=== PATIENT | male | born 1955 | race Caucasian/White ===

== ENCOUNTER → 2016-09-20 | Outpatient (CLI) | payer MEDICAID | LOC: FIMAGING 09:51 | PROVIDERS: ATTEND Physician Assistant Medical | DX: M48.02 Spinal stenosis, cervical region (principal); M50.321 Other cervical disc degeneration at C4-C5 level; J32.9 Chronic sinusitis, unspecified ==

== ENCOUNTER → 2016-12-17 | Outpatient (CLI) | payer MEDICAID ==
[~2016-12-17] MED LIST: IOPAMIDOL (ISOVUE-300) 100 ML BTL ONE
== END ==
LOC: CIMAGING 14:20
PROVIDERS: ATTEND Internal Medicine
DX: R10.32 Left lower quadrant pain (principal)
CPT/HCPCS: 74177-PO; Q9967

== ENCOUNTER 2017-01-20 06:07 | Day surgery (SDC) | payer MEDICAID ==
[2017-01-20] MEDS ORDERED: LR 1,000 ML IV ONE (06:15)
[2017-01-20] MEDS ORDERED: LIDOCAINE 1% 2 ML INJ ID PRN (06:15)
[2017-01-20 06:42] VITALS: TEMP 97.5
--- NOTE | 2017-01-20 07:08 | PDANEPAE ---
ANE History of Present Illness colonoscopy ANE Past Medical History - Cardiovascular History Hx Hypertension: No Hx Arrhythmias: No Hx Chest Pain: No Hx Coronary Artery / Peripheral Vascular Disease: No Hx CHF / Valvular Disease: No Hx Palpitations: No - Pulmonary History Hx COPD: No Hx Asthma/Reactive Airway Disease: No Hx Recent Upper Respiratory Infection: No Hx Oxygen in Use at Home: No Hx Sleep Apnea: No Sleep Apnea Screening Result - Last Documented: Positive - Neurologic History Hx Cerebrovascular Accident: No Hx Seizures: No Hx Dementia: No - Endocrine History Hx Diabetes: No Hypothyroid: No Hyperthyroid: No - Renal History Hx Renal Disorders: No - Liver History Hx Hepatic Disorders: No - Neurological & Psychiatric Hx Hx Neurological and Psychiatric Disorders: No - Cancer History Hx Cancer: No - Congenital Disorder History Hx Congenital Disorders: No - GI History Hx Gastrointestinal Disorders: Yes Gastrointestinal History Comment: LOWER LEFT SIDE OF COLON - Other Health History Other Health History: NONE - Chronic Pain History Chronic Pain: Yes (RIGHT ARM/SHOULDER) - Surgical History Prior Surgeries: COLONOSCOPY X2 ELBOW SURGERY ANE Review of Systems - Exercise capacity METS (RN): 4 METS ANE Patient History - Allergies Allergies/Adverse Reactions: No Known Allergies Allergy (Unverified 01/16/17 17:25) - NPO status NPO Since - Liquids (Date): 01/19/17 NPO Since - Liquids (Time): 22:30 NPO Since - Solids (Date): 01/19/17 NPO Since - Solids (Time): 09:00 - Anes Hx Anes Hx: no prior problems - Smoking Hx Smoking Status: Never smoked Marijuana use: No - Alcohol Use Alcohol Use: Occasionally - Family Anes Hx Family Anes Hx: none Family Hx Anesthesia Complications: NONE ANE Labs/Vital Signs - Vital Signs Blood Pressure: 109/66 Heart Rate: 55 Respiratory Rate: 16 O2 Sat (%): 95 Height: 185.42 cm Weight: 83.915 kg ANE Physical Exam - Airway Neck exam: FROM Mouth exam: normal dental/mouth exam - Pulmonary Pulmonary: no respiratory distress - Cardiovascular Cardiovascular: regular rate and rhythym - ASA Status ASA Status: I
[2017-01-20] MEDS ORDERED: PROPOFOL 200 MG/20 ML VIAL ONE ×2 (07:32)
--- NOTE | 2017-01-20 07:33 | PDGENHP ---
History & Physical Chief Complaint: LLQ pain Relevant Physical Exam: GEN: NAD. Cardiac: RRR. Lungs: CTA B. Abd: Soft, nt, nd
[2017-01-20] MEDS ORDERED: ONDANSETRON 4 MG/2 ML VIAL IVP PRN (07:49)
[2017-01-20] MEDS ORDERED: NALOXONE HCL 0.4 MG/ML INJ IVP PRN (07:49)
--- NOTE | 2017-01-20 07:49 | POSTANESTH ---
Post Anesthetic Evaluation Cardiovascular Status: Normal, Stable Respiratory Status: Normal, Stable Level of Consciousness/Mental Status: Can Participate in Eval Pain Control: Adequate, Prn Tx Ordered Nausea/Vomiting Control: Adequate, Prn Tx Ordered Complications Possibly Related to Anesthesia: None Noted
[2017-01-20] MEDS ORDERED: LIDOCAINE 2% 5 ML SDV ONE (07:50)
--- NOTE | 2017-01-20 08:01 | POSTOPPROG ---
Post Op Note Date of Operation: 01/20/17 Surgeon: Josep Lindsay Pre-op Diagnosis: LLQ pain Post-op Diagnosis: Same Procedure: Colonoscopy with snare and bx Findings: Colon polyps Inf/Abcess present in the surg proc area at time of surgery?: No
--- NOTE | 2017-01-20 08:21 | GPN ---
[f rep st] PROCEDURE NOTE PREPROCEDURE DIAGNOSIS: Left lower quadrant abdominal pain. POSTPROCEDURE DIAGNOSIS: Left lower quadrant abdominal pain. PROCEDURE: Colonoscopy with snare, colonoscopy with biopsies. MEDICATIONS: Monitored anesthesia care. BLOOD LOSS: Minimal. BIOPSIES: Yes. COMPLICATIONS: None. INDICATIONS: The patient is a 61-year-old gentleman with a history of left lower quadrant abdominal pain. He also has multiple colon polyps during his last colonoscopy and a 3 year followup was jessica mmended. It has been 2 years since his last colonoscopy. The risks and benefits of the procedure d iscussed the patient. Consent obtained. Risks include, but not limited to, bleeding, perforation, sedation. The patient is ASA class 2. PROCEDURE: The adult colonoscope was advanced to the terminal ileum, which appeared normal. The ce cum, appendiceal orifice are normal. There was a 4 mm polyp in the ascending colon, which removed w ith cold snare polypectomy technique and the pathology retrieved. The hepatic flexure, transverse c olon, splenic flexure, descending colon were normal. There were 3 small polyps removed from the sig moid colon with cold biopsy forceps and sent off to pathology. Retroflexed views in the rectum were normal. There was mild left-sided diverticulosis. IMPRESSION: 1. Colon polyp, status post removal. 2. Mild left-sided diverticulosis. 3. No findings to explain left lower quadrant abdominal pain. RECOMMENDATIONS: 1. Discharge home with escort. 2. Advance diet as tolerated. 3. Follow up final pathology results. The results will be available within 10 days. 4. Repeat colonoscopy in 3 years given multiple polyps in the past and recurrent polyps. 5. Follow up in clinic as previously scheduled. Thank you for allowing me to participate in care of your patient. Please do not hesitate to call mn th questions. /[id number]/MODL
[2017-01-20 08:49] VITALS: O2SAT 96
[2017-01-20 09:26] VITALS: BP 114/67; PULSE 46; RESP 16
== END 2017-01-20 09:14 | disposition home or self-care (01) ==
LOC: FSGY 06:07
PROVIDERS: ATTEND Internal Medicine Gastroenterology
DX: R10.32 Left lower quadrant pain (principal); D12.2 Benign neoplasm of ascending colon; K63.5 Polyp of colon; M25.511 Pain in right shoulder; G89.29 Other chronic pain; Z87.891 Personal history of nicotine dependence; Z86.010 Personal history of colon polyps; Z82.49 Family history of ischemic heart disease and other diseases of the circulatory system; Z83.3 Family history of diabetes mellitus
CPT/HCPCS: J2704

== ENCOUNTER 2017-01-24 21:02 | Emergency (ER) | payer MEDICAID ==
[2017-01-24 21:07] VITALS: TEMP 97.9
[2017-01-24 21:56] LABS: COLOR COLORLESS; LEUKOCYTE ESTERASE,URINE NEGATIVE (NEGATIVE); NITRITE,URINE NEGATIVE (NEGATIVE)
--- NOTE | 2017-01-24 22:00 | EDPHY ---
H & P Stated Complaint: unable to urinate Time Seen by Provider: 01/24/17 21:18 HPI/ROS: Chief complaint: Unable to urinate History of present illness: This is a 61-year-old male who presents to the emergency department for inability to urinate. Patient reports symptoms began approximately 3 hours ago. He reports distention in the lower abdomen with pain. He is very uncomfortable. He denies any known precipitating factors. He denies any alleviating factors. He has never had problems with inability to urinate previously although he does report a history of occasional difficulty completely voiding. No report of fevers. - Medical/Surgical History Hx Asthma: No Hx Chronic Respiratory Disease: No Hx Diabetes: No Hx Cardiac Disease: No Hx Renal Disease: No Hx Cirrhosis: No Hx Alcoholism: No Hx HIV/AIDS: No Hx Splenectomy or Spleen Trauma: No - Social History Smoking Status: Never smoked - Physical Exam Exam: General Appearance: Alert, nontoxic Eyes: Pupils equal and round no injection. Respiratory: Chest is non tender, lungs are clear to auscultation. Cardiac: regular rate and rhythm Gastrointestinal: Abdomen is soft and non tender, no masses, bowel sounds normal. Musculoskeletal: Neck is supple and non tender. Extremities have full range of motion and are non tender. Skin: No rashes or lesions. Neurological: Alert and oriented. Constitutional: Initial Vital Signs Temperature (C) 36.6 C 01/24/17 21:05 Heart Rate 84 01/24/17 21:05 Respiratory Rate 20 01/24/17 21:05 Blood Pressure 180/102 H 01/24/17 21:05 O2 Sat (%) 94 01/24/17 21:05 O2 Delivery Mode Room Air Allergies/Adverse Reactions: No Known Allergies Allergy (Unverified 01/16/17 17:25) Home Medications: Medication Instructions Recorded NK [No Known Home Meds] 01/24/17 Medical Decision Making ED Course/Re-evaluation: Patient seen under the supervision of my secondary supervising physician Dr. Dmitriy Arias. Patient presents to the emergency department for acute urinary retention. He is nontoxic. Vital signs are stable. Bladder scan reported with over 700 cc of urine in the bladder. Merino catheter placed by nursing staff before I saw patient. On my evaluation he is feeling much better. No precipitating factors are noted. Urinalysis and creatinine unremarkable. Merino catheter with leg bag will be left in place. Patient is discharged home. He is to follow up with Urology for recheck. Return precautions are given. Differential Diagnosis: Included but not limited to urinary retention from BPH, prostate tumor, intrapelvic or intra-abdominal mass, infection - Data Points Laboratory Results: 01/24/17 01/24/17 21:55 21:30 POC Hgb 14.3 gm/dL gm/dL (13.7-17.5) POC Hct 42 % % (40-51) POC Sodium 139 mEq/L mEq/L (134-144) POC Potassium 3.9 mEq/L mEq/L (3.3-5.0) POC Chloride 104 mEq/L mEq/L (97-110) POC BUN 16 mg/dL mg/dL (7-23) POC Creatinine 1.1 mg/dL mg/dL (0.7-1.3) POC Glucose 95 mg/dL mg/dL (70-100) Urine Color COLORLESS Urine Appearance CLEAR Urine pH 6.0 (5.0-7.5) Ur Specific [place] 1.003 (1.002-1.030) Urine Protein NEGATIVE (NEGATIVE) Urine Ketones NEGATIVE (NEGATIVE) Urine Blood 2+ H (NEGATIVE) Urine Nitrate NEGATIVE (NEGATIVE) Urine Bilirubin NEGATIVE (NEGATIVE) Urine Urobilinogen NEGATIVE EU EU (0.2-1.0) Ur Leukocyte Esterase NEGATIVE (NEGATIVE) Urine RBC Not Reported Urine WBC Not Reported Ur Epithelial Cells Not Reported Urine Glucose NEGATIVE (NEGATIVE) Point of Care Test Results: 01/24/17 21:55 POC Sodium 139 POC Potassium 3.9 POC Chloride 104 POC BUN 16 POC Creatinine 1.1 POC Glucose 95 Departure - Departure Disposition: Home, Routine, Self-Care Clinical Impression: Urinary retention Condition: Good Instructions: Urinary Retention in Men (ED) Additional Instructions: Follow-up with Urology next week for continued evaluation and care If symptoms worsen or new symptoms develop return to the emergency room for recheck Referrals: Yanique Goldman MD [Primary Care Provider] - As per Instructions Efrain Sexton MD [Medical Doctor] - As per Instructions
[2017-01-24 22:52] VITALS: BP 132/89; PULSE 88; RESP 16; O2SAT 96
== END 2017-01-24 22:52 | disposition home or self-care (01) ==
PROC: 0T9B70Z Drainage of Bladder with Drainage Device, Via Natural or Artificial Opening (ICD-10-PCS; principal; 2017-01-24)
DX: R33.9 Retention of urine, unspecified (principal)
CPT/HCPCS: 82947-QW

== ENCOUNTER 2017-01-25 15:39 | Emergency (ER) | payer MEDICAID ==
[2017-01-25 15:49] VITALS: BP 148/90; PULSE 60; RESP 16; TEMP 97.9; O2SAT 96
--- NOTE | 2017-01-25 15:52 | EDPHY ---
H & P Stated Complaint: wan Time Seen by Provider: 01/25/17 15:50 HPI/ROS: CHIEF COMPLAINT: Requesting Merino catheter removal HISTORY OF PRESENT ILLNESS: 61-year-old male seen emergency department yesterday for acute urinary retention. Merino catheter placement. He returns to the ER today (Thursday) requesting Merino catheter removal. He has no complaints of abdominal pain, back or flank pain, fever, chills. Catheter is patent. REVIEW OF SYSTEMS: A ten point review of systems was performed and is negative with the exception of the items mentioned in the HPI PAST MEDICAL & SURGICAL HISTORY: No pertinent medical or surgical history SOCIAL HISTORY: nonsmoker PHYSICAL EXAM (Prior to examination, patient consented to physical exam, hands were washed and my usual and customary physical exam procedures followed) 1) GENERAL: Well-developed, well-nourished, alert and oriented. Appears to be in no acute distress. 2) HEAD: Normocephalic, atraumatic 3) HEENT: Pupils equal, round, reactive to light bilaterally. Sclera anicteric. 4) NECK: Full range of motion, no meningeal signs. 5) LUNGS: Clear auscultation bilaterally, no wheezes, no rhonchi, no retractions. 6) HEART: Regular rate and rhythm, no murmur, no heave, no gallop. 7) ABDOMEN: No guarding, no rebound, no focal tenderness, negative McBurney's, negative Garcia's, negative Rovsing's, negative peritoneal sign, 8) MUSCULOSKELETAL: Moving all extremities, no focal areas of tenderness, no obvious trauma. No peripheral edema or discoloration. 9) BACK: No CVA tenderness. No midline C-spine pain. 10) SKIN: No rash, no petechiae. 11) : Merino catheter in place . DIFFERENTIAL DIAGNOSIS: in no particular include but limited to urinary retention, BPH, UTI - Personal History Current Tetanus/Diphtheria Vaccine: Unsure Current Tetanus Diphtheria and Acellular Pertussis (TDAP): Unsure - Medical/Surgical History Hx Asthma: No Hx Chronic Respiratory Disease: No Hx Diabetes: No Hx Cardiac Disease: No Hx Renal Disease: No Hx Cirrhosis: No Hx Alcoholism: No Hx HIV/AIDS: No Hx Splenectomy or Spleen Trauma: No - Social History Smoking Status: Never smoked Constitutional: Initial Vital Signs Temperature (C) 36.6 C 01/25/17 15:47 Heart Rate 60 01/25/17 15:47 Respiratory Rate 16 01/25/17 15:47 Blood Pressure 148/90 H 01/25/17 15:47 O2 Sat (%) 96 01/25/17 15:47 O2 Delivery Mode Room Air Allergies/Adverse Reactions: No Known Allergies Allergy (Unverified 01/16/17 17:25) Home Medications: Medication Instructions Recorded NK [No Known Home Meds] 01/24/17 Medical Decision Making ED Course/Re-evaluation: The patient is requesting Merino catheter be removed. He has been informed that his only been in for approximately 24 hours and I recommended stay on longer. However he states that he would like it removed secondary to pain. He has been informed, prior to Merino catheter removal, that if he is unable to urinate he will necessitate further Merino catheter insertion. States that he is willing to take this risk. Subsequently, the Merino catheter was removed and he was able to voluntarily urinate. He is planning on following up with Urology later this week (today is Thursday). Departure - Departure Disposition: Home, Routine, Self-Care Clinical Impression: Encounter for Merino catheter removal Condition: Good Instructions: Urinary Retention in Men (ED) Additional Instructions: Return to the emergency department immediately if you are unable to urinate voluntarily Referrals: Efrain Sexton MD [Medical Doctor] - 1-2 days without fail
== END 2017-01-25 16:20 | disposition home or self-care (01) ==
DX: Z46.6 Encounter for fitting and adjustment of urinary device (principal)

== ENCOUNTER → 2017-03-11 | Outpatient (CLI) | payer MEDICAID ==
[~2017-03-11] MED LIST changes: +GADOBUTROL 10 ML VIAL IVP ONE; +GLUCAGON HCL 0.3 MG in SYRINGE 0.3 ML IVP ONE; +GLUCAGON HCL 1 MG VIAL IVP ONE; -IOPAMIDOL (ISOVUE-300) 100 ML BTL ONE
== END ==
LOC: FIMAGING 07:53
PROVIDERS: ATTEND Physician Assistant
DX: K57.30 Diverticulosis of large intestine without perforation or abscess without bleeding (principal)
CPT/HCPCS: A9585; J1610

== ENCOUNTER → 2017-09-02 | Outpatient (CLI) | payer MEDICAID | LOC: FIMAGING 15:10 | PROVIDERS: ATTEND Physician Assistant Medical | DX: G20 Parkinson's disease (principal); M62.81 Muscle weakness (generalized); M79.601 Pain in right arm ==